=== PATIENT | male | born 1995 | race Two or more races ===

== ENCOUNTER 2022-03-06 18:00 | Emergency (ER) | payer MEDICAID ==
[~2022-03-06] VITALS: Ht 167.6 cm; Wt 63.5 kg
--- NOTE | 2022-03-06 18:10 | NUR ---
BIBRA 860 FROM HOME C/O LEFT AND RIGHT SHOULDER INJURY. +DEFORMITY ON THE LEFT SHOULDER S/P SLIP AND FALL. -HEAD INJURY. PLACED ON BED, AAOX4, IN PAIN 07/14
--- NOTE | 2022-03-06 18:25 | NUR ---
SEEN AND EXAMINED BY DR GERMAN
[2022-03-06] MEDS ORDERED: FENTANYL PF 100MCG/2ML AMPUL IM ONE (18:30)
[2022-03-06] MEDS ORDERED: FENTANYL PF 100MCG/2ML AMPUL ONE (18:47)
[2022-03-06] MEDS ORDERED: PROPOFOL 200 MG/20 ML VIAL IV ONE (19:00)
[2022-03-06] MEDS ORDERED: PROPOFOL 20 ML IV ONE (19:08)
--- NOTE | 2022-03-06 19:13 | NUR ---
PROPOFOL 130MG IV GIVEN PRIOR LEFT SHOULDER REDUCTION
--- NOTE | 2022-03-06 19:18 | NUR ---
ADDITIONAL KETAMINE 75MG IV GIVEN PRIOR LEFT SHOULDER REDUCTION
--- NOTE | 2022-03-06 19:25 | NUR ---
Imani childers in ED - 03/06/[address] GERMAN SUCCESSFULLY REDUCED DISLOCATED LEFT SHOULDER BP-160/89
--- NOTE | 2022-03-06 19:30 | NUR ---
DR GERMAN SUCESSFULLY REDUCED DISLOCATED LEFT SHOULDER. BP-160/89, HI-99, RR-20, SATURATING AT 100% 2LIT.O2, PATIENT IS AWAKE.
--- NOTE | 2022-03-06 19:35 | NUR ---
KETAMINE WASTE 425MG WITNESS BY HOSEA JACOBS
[2022-03-06] MEDS ORDERED: IBUP-1957 PO (19:47)
[2022-03-06] MEDS ORDERED: HYDR-4209 PO (19:47)
--- NOTE | 2022-03-06 19:49 | NUR ---
RECEIVED REPORT FROM GRAHAM JC FOR [facility]
[2022-03-06 19:59] VITALS: BP 130/70
--- NOTE | 2022-03-06 19:59 | NUR ---
Patient discharged to home in stable condition. Written and verbal after care instructions given. Patient verbalizes understanding of instruction.
== END 2022-03-06 20:00 | disposition home or self-care (01) ==
LOC: ER 18:16
DX: S43.015A Anterior dislocation of left humerus, initial encounter (principal); Z79.899 Other long term (current) drug therapy; W01.0XXA Fall on same level from slipping, tripping and stumbling without subsequent striking against object, initial encounter; Y93.89 Activity, other specified; Y92.89 Other specified places as the place of occurrence of the external cause; Y99.8 Other external cause status
CPT/HCPCS: 23650; 73030 ×3; 99152; 99285; J2704; J3010; G0500

== ENCOUNTER 2022-05-11 18:00 | Emergency (ER) | payer MEDICAID ==
[~2022-05-11] VITALS: Ht 170.2 cm; Wt 61.2 kg
[~2022-05-11 18:00] MED LIST: HYDR-4209 PO; IBUP-1957 PO
--- NOTE | 2022-05-11 18:05 | NUR ---
BIBFAMILY C/O LEFT SHOULDER PAIN WHILE SWIMMING. AMBULATORY, PLACED ON BED, AAOX4, IN PAIN 10/10 PS.
--- NOTE | 2022-05-11 18:17 | NUR ---
DR HARRINGTON AT THE BEDSIDE
[2022-05-11] MEDS ORDERED: PROPOFOL 20 ML IV ONE (18:23)
[2022-05-11] MEDS ORDERED: PROPOFOL 200 MG/20 ML VIAL IV ONE ×2 (18:30→19:00)
[2022-05-11] MEDS ORDERED: IBUP-1957 PO (19:21)
[2022-05-11] MEDS ORDERED: HYDR-4209 PO (19:21)
--- NOTE | 2022-05-11 19:50 | NUR ---
Patient discharged to home in stable condition. Written and verbal after care instructions given. Patient verbalizes understanding of instruction.IV removed. Catheter intact and site benign. Pressure and 4x4 applied to site. No bleeding noted.
[2022-05-11 19:52] VITALS: BP 126/59
== END 2022-05-11 19:52 | disposition home or self-care (01) ==
LOC: ER 18:03
DX: S43.005A Unspecified dislocation of left shoulder joint, initial encounter (principal); X58.XXXA Exposure to other specified factors, initial encounter; Y93.89 Activity, other specified; Y92.89 Other specified places as the place of occurrence of the external cause; Y99.8 Other external cause status
CPT/HCPCS: 99285; 23650; 99152; 73030; 73020; J2704; J7030; G0500

== ENCOUNTER 2022-12-06 12:00 | Emergency (ER) | payer MEDICAID ==
[~2022-12-06] VITALS: Ht 165.1 cm; Wt 64.0 kg
--- NOTE | 2022-12-06 12:23 | NUR ---
PT IN BED C/O GENITAL PAIN OF THE RIGHT TESTCLE PURLENT DISCHARGE PRESENT FROM URETHERAL TIP. 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 PAIN IS CURRENTLY 7/10 MD IN ROOM FOR EVAL.
[2022-12-06] MEDS ORDERED: ACETAMINOPHEN ES 500 MG TABLET ONE (12:45)
--- NOTE | 2022-12-06 12:48 | NUR ---
URINE COLLECTED AND SENT TO LAB
[2022-12-06] MEDS ORDERED: ACETAMINOPHEN 325 MG TABLET PO ONE (13:00)
[2022-12-06 13:28] LABS: BILIRUBIN,URINE NEGATIVE (NEGATIVE); COLOR,URINE YELLOW (YELLOW); LEUKOCYTE ESTERASE ,URINE TRACE (NEGATIVE); NITRITE, URINE NEGATIVE (NEGATIVE); PROTEIN,URINE NEGATIVE (NEGATIVE); UGLUCOSE NEGATIVE (NEGATIVE); UROBILINOGEN,URINE 0.2 EU/dL (0.2)
[2022-12-06] MEDS ORDERED: CEFTRIAXONE 500 MG VIAL ONE (14:13)
[2022-12-06] MEDS ORDERED: DOXY100T2 PO (14:15)
[2022-12-06] MEDS ORDERED: IBUP-1953 PO (14:15)
[2022-12-06 14:25] VITALS: BP 128/79
[2022-12-06] MEDS ORDERED: CEFTRIAXONE 500 MG VIAL IM ONE (14:30)
[2022-12-06 14:53] LABS: BACTERIA,URINE None seen /HPF (None Seen); RBC,URINE NONE SEEN /HPF (0-2); SQUAMOUS EPITHELIAL CELL,UR None Seen /HPF (None Seen)
== END 2022-12-06 14:25 | disposition home or self-care (01) ==
LOC: ER 12:08
DX: N45.1 Epididymitis (principal); Z79.899 Other long term (current) drug therapy
CPT/HCPCS: 99285; 96372; 76870; 87086; 81001; J0696